=== PATIENT | female | born 1975 | race Caucasian/White ===

== ENCOUNTER 2021-01-11 11:41 | Day surgery (SDC) | payer OTHER ==
[~2021-01-11] VITALS: Ht 157.5 cm; Wt 86.2 kg
[~2021-01-11 11:41] MED LIST: BUPIVACAINE-MPF 0.25% 30 ML VIAL INJ ONE; BUPIVACAINE-MPF/EPI 0.25% 30 ML VIAL INJ ONE; LIDOCAINE 1% 500 MG/50 ML VIAL ONE; ceFAZolin 1,000 MG VIAL ONE
[2021-01-11] MEDS ORDERED: PROPOFOL 200 MG/20 ML VIAL IV ONE (14:38)
[2021-01-11] MEDS ORDERED: SUCCINYLCHOLINE CHLORIDE 200 MG/10 ML VIAL IVP ONE (14:38)
[2021-01-11] MEDS ORDERED: fentaNYL citrate 0.05 MG/ML VIAL ONE (14:38)
[2021-01-11] MEDS ORDERED: MIDAZOLAM 2 MG/2 ML VIAL ONE (14:38)
[2021-01-11] MEDS ORDERED: SEVOFLURANE 250 ML BTL INH ONE (14:40)
[2021-01-11] MEDS ORDERED: ROCURONIUM 50 MG/5 ML VIAL IV ONE (15:02)
[2021-01-11] MEDS ORDERED: ceFAZolin 1,000 MG VIAL ONE (15:07)
[2021-01-11] MEDS ORDERED: diphenhydrAMINE 50 MG/ML VIAL IVP PRN (15:25)
[2021-01-11] MEDS ORDERED: LACTATED RINGERS 1,000 ML IV SCH (15:25)
[2021-01-11] MEDS ORDERED: HYDROmorphone 1 MG/ML AMP IVP PRN (15:25)
[2021-01-11] MEDS ORDERED: MEPERIDINE 25 MG/ML SYR IVP PRN (15:25)
[2021-01-11] MEDS ORDERED: ONDANSETRON 4 MG/2 ML VIAL IVP PRN (15:25)
[2021-01-11] MEDS ORDERED: SUGAMMADEX SODIUM 200 MG/2 ML VIAL IV ONE (15:39)
[2021-01-11] MEDS: HYDROmorphone PFS 2 MG/ML SYR ONE ×4 (16:14→16:47)
[2021-01-11] MEDS ORDERED: HYDROcodone/APAP 5/325 MG 1 TAB TAB PO SCH (16:51)
[2021-01-11] MEDS ORDERED: KETOROLAC 15 MG/ML VIAL IVP SCH (16:51)
== END 2021-01-11 18:40 | disposition home or self-care (01) ==
LOC: MDS 11:41
PROVIDERS: ATTEND Surgery
DX: K42.0 Umbilical hernia with obstruction, without gangrene (principal); E11.9 Type 2 diabetes mellitus without complications; E03.9 Hypothyroidism, unspecified; Z90.710 Acquired absence of both cervix and uterus; Z79.899 Other long term (current) drug therapy
CPT/HCPCS: 49587; 71045; C1781; J0330; J0690; J1170; J2001; J2250; J2704; J3010; J3490; J7120

== ENCOUNTER 2021-02-10 06:18 | Emergency (ER) | payer OTHER ==
[~2021-02-10] VITALS: Ht 157.5 cm; Wt 81.6 kg
[2021-02-10 06:30] VITALS: BP 118/65
--- NOTE | 2021-02-10 06:30 | NUR ---
TO BED AMBULATORY
--- NOTE | 2021-02-10 06:57 | NUR ---
45 YO F BIB SELF WITH C/C OF RUQ + RLQ 9/10 SHARP PAIN X4DAYS. PT STATES IT IS WORSE AT NIGHT. +NAUSEA, DIZZY, AND DIAPHOREITC WHEN PAIN IS INTENSE. -V/D. STATED SHE TAKES IBUPROFEN 800MG WITH NO RELIEF. PT HAD A HERNIA REMOVAL ON 02/11/21. HX: HYPOTHY, BORDER LINE DM RX:LEVOTHYROXINE AND METFORMIN NKA
[2021-02-10] MEDS ORDERED: KETOROLAC 60 MG/2 ML VIAL IM ONE (07:10)
[2021-02-10] MEDS ORDERED: ONDANSETRON 4 MG ODT PO ONE (07:10)
--- NOTE | 2021-02-10 07:14 | NUR ---
REPORT GIVEN TO GREGORY TERRY. TRANSFER OF CARE AT THIS TIME.
--- NOTE | 2021-02-10 07:51 | NUR ---
Labs and urine collected and walked to lab
[2021-02-10 08:07] LABS: BASOPHILS % (AUTO) 0.4 % (0.0-2.0); EOSINOPHILS # (AUTO) 0.7 K/uL (0-0.4); EOSINOPHILS % (AUTO) 7.6 % (0.0-4.0); HEMATOCRIT 28.6 % (36-48); HEMOGLOBIN 8.9 g/dL (12.0-16.0); LYMPHOCYTES # (AUTO) 2.6 K/uL (2.5-16.5); LYMPHOCYTES % (AUTO) 27.5 % (20.5-51.1); MEAN CORPUSCULAR HEMOGLOBIN 20 pg (27-31); MEAN CORPUSCULAR HGB CONC 31 g/dL (33-37); MONOCYTES # (AUTO) 0.5 K/uL (0.8-1.0); MONOCYTES % (AUTO) 5.6 % (1.7-9.3); NEUTROPHILS # (AUTO) 5.7 K/uL (1.8-7.7); NEUTROPHILS % (AUTO) 58.9 % (42.2-75.2); PLATELET COUNT (AUTO) 325 K/uL (140-450); RED BLOOD CELL COUNT(AUTO) 4.54 MIL/uL (4.20-5.40); RED CELL DISTRIBUTION WIDTH 18.6 % (11.6-13.7); WHITE BLOOD COUNT (AUTO) 9.6 K/uL (4.8-10.8)
[2021-02-10] MEDS ORDERED: DICYCLOMINE HCL LIQUID 20 MG, ALUMINUM HYD/MAG/SIMETHICONE 30 ML, LIDOCAINE VISCOUS 2% ... PO ONE ×3 (08:10)
[2021-02-10] MEDS ORDERED: DICYCLOMINE HCL LIQUID 10 MG/5 ML UDC ONE (08:11)
[2021-02-10] MEDS ORDERED: ALUMINUM HYD/MAG/SIMETHICONE 30 ML UDC ONE (08:11)
[2021-02-10] MEDS ORDERED: ACET-8386 PO (08:17)
[2021-02-10] MEDS ORDERED: IBUP-2213 PO (08:17)
[2021-02-10] MEDS ORDERED: ONDA8TAB87 PO (08:17)
[2021-02-10] MEDS ORDERED: OMEP40EC24 PO (08:17)
[2021-02-10 08:34] LABS: ALBUMIN 3.1 g/dL (3.4-5.0); ANION GAP 10.6 (8-16); CREATININE 0.6 mg/dL (0.6-1.3); POTASSIUM 3.6 mmol/L (3.5-5.1); TOTAL BILIRUBIN 0.2 mg/dL (0.0-1.0)
[2021-02-10 08:50] VITALS: BP 121/71
--- NOTE | 2021-02-10 08:50 | NUR ---
Patient discharged with v/s stable. Written and verbal after care instructions given and explained about nausea and abdominal pain. Patient alert, oriented and verbalized understanding of instructions. Ambulatory with steady gait. All questions addressed prior to discharge. ID band removed. Patient advised to follow up with PMD. Rx of Prilosec, Zofran, Ibuprofen and [place] 5-325 given. Patient educated on indication of medication including possible reaction and side effects, as well as educated on use of narcotics and to avoid alcohol and driving while using. Opportunity to ask questions provided and answered.
== END 2021-02-10 08:50 | disposition home or self-care (01) ==
LOC: MED 06:18
DX: R10.11 Right upper quadrant pain (principal); R11.0 Nausea; R50.9 Fever, unspecified; Z90.49 Acquired absence of other specified parts of digestive tract; Z98.890 Other specified postprocedural states; Z90.710 Acquired absence of both cervix and uterus; Z79.899 Other long term (current) drug therapy
CPT/HCPCS: 36415; 74176; 80053; 81002; 83690; 85025; 87086; 96372; 99284; J1885; Q0162; 81025

== ENCOUNTER 2023-02-27 13:45 | Emergency (ER) | payer OTHER ==
[~2023-02-27] VITALS: Ht 157.5 cm; Wt 80.7 kg
[~2023-02-27 13:45] MED LIST changes: +ACET-8905 PO; -BUPIVACAINE-MPF 0.25% 30 ML VIAL INJ ONE; -BUPIVACAINE-MPF/EPI 0.25% 30 ML VIAL INJ ONE; +IBUP-2213 PO; -LIDOCAINE 1% 500 MG/50 ML VIAL ONE; +OMEP40EC24 PO; +ONDA8TAB87 PO; -ceFAZolin 1,000 MG VIAL ONE
[2023-02-27 14:08] VITALS: BP 123/75; PULSE 78; RESP 18; TEMP 98.6; O2SAT 100
[2023-02-27] MEDS ORDERED: ONDANSETRON 4 MG ODT PO SCH (16:05)
[2023-02-27] MEDS ORDERED: HYDROcodone/APAP 5/325 MG 1 TAB TAB PO SCH (16:05)
[2023-02-27] MEDS ORDERED: KETOROLAC 30 MG/ML VIAL IM SCH (16:05)
[2023-02-27 16:06] LABS: BASOPHILS # (AUTO) 0.1 K/uL (0.00-0.22); BASOPHILS % (AUTO) 0.6 % (0.0-2.0); EOSINOPHILS # (AUTO) 0.2 K/uL (0-0.4); EOSINOPHILS % (AUTO) 2.4 % (0.0-4.0); HEMATOCRIT 28.2 % (36-48); HEMOGLOBIN 8.9 g/dL (12.0-16.0); LYMPHOCYTES # (AUTO) 2.3 K/uL (2.5-16.5); LYMPHOCYTES % (AUTO) 26.4 % (20.5-51.1); MEAN CORPUSCULAR HEMOGLOBIN 19 pg (27-31); MEAN CORPUSCULAR HGB CONC 31 g/dL (33-37); MEAN CORPUSCULAR VOLUME 59.9 fL (80-94); MONOCYTES # (AUTO) 0.5 K/uL (0.8-1.0); MONOCYTES % (AUTO) 5.8 % (1.7-9.3); NEUTROPHILS # (AUTO) 5.5 K/uL (1.8-7.7); NEUTROPHILS % (AUTO) 64.8 % (42.2-75.2); PLATELET COUNT (AUTO) 308 K/uL (140-450); RED CELL DISTRIBUTION WIDTH 18.9 % (11.6-13.7); WHITE BLOOD COUNT (AUTO) 8.6 K/uL (4.8-10.8)
[2023-02-27 16:20] LABS: ALBUMIN 3.5 g/dL (3.4-5.0); ANION GAP 9.7 (8-16); CALCIUM 8.3 mg/dL (8.5-10.1); CARBON DIOXIDE 31.6 mmol/L (21-32); CREATININE 0.7 mg/dL (0.6-1.3); POTASSIUM 3.3 mmol/L (3.5-5.1); TOTAL BILIRUBIN 0.2 mg/dL (0.0-1.0); TOTAL PROTEIN, SERUM 7.5 g/dL (6.4-8.2)
[2023-02-27 16:22] LABS: APPEARANCE,URINE CLEAR (CLEAR); BILIRUBIN,URINE NEGATIVE (NEGATIVE); BLOOD, URINE NEGATIVE (NEGATIVE); COLOR,URINE YELLOW (YELLOW); LEUKOCYTE ESTERASE ,URINE NEGATIVE (NEGATIVE); NITRITE, URINE NEGATIVE (NEGATIVE); PROTEIN,URINE NEGATIVE (NEGATIVE); UGLUCOSE NEGATIVE (NEGATIVE); UROBILINOGEN,URINE 0.2 EU/dL (0.2 - 1)
[2023-02-27] MEDS ORDERED: ACET-8905 PO (17:07)
[2023-02-27] MEDS ORDERED: FAMO-90 PO (17:07)
[2023-02-27] MEDS ORDERED: MAG355OR2 PO (17:07)
== END 2023-02-27 17:32 | disposition home or self-care (01) ==
LOC: MED 13:45
DX: R10.12 Left upper quadrant pain (principal); E03.9 Hypothyroidism, unspecified; Z79.899 Other long term (current) drug therapy
CPT/HCPCS: 36415; 80053; 81003; 81025; 82948; 83690; 85025; 96372; 99283; J1885; Q0162